=== PATIENT | male | born 1990 | race Caucasian/White ===

== ENCOUNTER 2023-01-09 22:07 | Emergency (ER) | payer BC ==
[~2023-01-09] VITALS: Ht 157.5 cm; Wt 75.0 kg
[2023-01-09] MEDS ORDERED: HYDROXYZINE HCL25 MG PO (23:18)
[2023-01-09 23:37] VITALS: BP 126/79
--- NOTE | 2023-01-10 22:24 | EKG ---
[facility] [address] [place], [place] [address] Signed Normal sinus rhythm Normal ECG No previous ECGs available Confirmed by AUSTEN BUCHANAN MD ([id number] on 01/10/2023 10:24:29 PM Electronically Signed By: AUSTEN BUCHANAN 01/10/234 PATIENT NAME: TUSHAR ROSARIO Electrocardiogram DATE OF : 88 PHYSICIAN: AUSTEN BUCHANAN REPORT #: [id number] REPORT IS CONFIDENTIAL AND NOT TO BE RELEASED WITHOUT AUTHORIZATION
== END 2023-01-09 23:38 | disposition home or self-care (01) ==
LOC: ED 22:07
DX: F41.9 Anxiety disorder, unspecified (principal); F17.290 Nicotine dependence, other tobacco product, uncomplicated
CPT/HCPCS: 93005; 93010; 99283-25